=== PATIENT | female | born 1990 | race African-American/Black ===

== ENCOUNTER → 2021-05-02 12:54 | Outpatient (BNVA) | payer OTHER, SELFPAY | PROVIDERS: PCP Internal Medicine; Visit Provider Physician Assistant ==

== ENCOUNTER 2021-05-06 09:05 | Outpatient (REF) | payer OTHER, SELFPAY ==
[2021-05-07 15:16] LABS: H Pylori Breath Test NOT DETECTED (NOT DETECTED)
== END 2021-05-06 09:06 | disposition home or self-care (01) ==
LOC: HO.LNP 09:05
PROVIDERS: PCP Internal Medicine; Visit Provider Physician Assistant
DX: E66.01 Morbid (severe) obesity due to excess calories (principal)
CPT/HCPCS: 83013

== ENCOUNTER → 2021-05-15 15:08 | Outpatient (BNVA) | payer OTHER, SELFPAY | PROVIDERS: PCP Internal Medicine; Visit Provider Physician Assistant ==

== ENCOUNTER 2021-05-28 09:43 | Outpatient (REF) | payer OTHER, SELFPAY ==
--- NOTE | ~2021-05-28 | US_ITS ---
EXAMINATION: US COMPLETE ABDOMEN WITH LIVER ELASTOGRAPHY CLINICAL INFORMATION: Morbid obesity due to excess calories. COMPARISON: None. TECHNIQUE: Real-time imaging of the abdominal viscera. Noninvasive ultrasound liver fibrosis assessment is performed using Dorothea ElastPQ point quantification shear wave elastography (pSWE) with a C5-2 MHz transducer. Multiple elastography samples are obtained. FINDINGS: PANCREAS: The visualized pancreatic head and body are normal in appearance. The tail of the pancreas is obscured from visualization by the overlying bowel gas. ABDOMINAL AORTA: The proximal, middle, and distal aortic segments are normal in caliber. INFERIOR VENA CAVA: Visualized portions are normal. LIVER: The liver demonstrates normal size, contour and increased echogenicity. No focal lesion or intrahepatic biliary duct dilatation. The right lobe measures 15.3 cm in length. The left lobe measures 10.8 cm in length. Portal flow is hepatopedal. Shear wave liver elastography median stiffness is 1.5 m/s (reference: normal median stiffness is 1.3 m/s or less). IQR/median stiffness to assess sampling precision is 0.09 (reference: good quality data set is IQR/median stiffness of 0.15 or less). GALLBLADDER: There are multiple echogenic folds visualized without any echogenic stones or wall thickening. COMMON BILE DUCT: Normal in caliber measuring 0.3 cm in diameter. RIGHT KIDNEY: Normal. No hydronephrosis. No renal calculi or focal parenchymal lesions. The kidney measures 12.1 cm in maximum dimension. LEFT KIDNEY: Normal. No hydronephrosis. No renal calculi or focal parenchymal lesions. The kidney measures 11.6 cm in maximum dimension. SPLEEN: Normal. The spleen measures 8.7 cm in maximum dimension. FREE FLUID: None. US/US abdomen comp w elastography IMPRESSION: 1. Hepatic steatosis without focal lesion. 2. Liver elastography: Medial liver stiffness measures 1.5 m/s suggestive of cACLD ruled out. REFERENCE: Society of Radiologists in Ultrasound Liver Stiffness Thresholds (2020): LIVER STIFFNESS THRESHOLDS: *Liver Stiffness equal or less than 1.3 m/s: High probability of being normal. *Liver Stiffness less than 1.7 m/s: In the absence of other known clinical signs, rules out compensated advanced chronic liver disease. *Liver Stiffness 1.7-2.1 m/s: Suggestive of compensated advanced chronic liver disease but need further test for confirmation. *Liver Stiffness over 2.1 m/s: Rules in compensated advanced chronic liver disease. *Liver Stiffness over 2.4 m/s: Suggestive of clinically significant portal hypertension. QUALITY OF DATA SET: *IQR/Median value equal or less than 0.15 implies a quality data set. *IQR/Median value over 0.15 implies a poor quality data set. SIGNIFICANT CHANGE FROM PRIOR EXAM: Significant change if liver stiffness measurement is 10% or greater from prior exam. OTHER CONSIDERATIONS: The stage of liver fibrosis may be overestimated in the setting of acute hepatitis, liver inflammation, elevated liver function tests, hepatic vascular congestion, obstructive cholestasis, non-fasting state, and infiltrative diseases such as amyloidosis and lymphoma. In some patients with NAFLD, the liver stiffness thresholds for compensated advanced chronic liver disease may be lower. In causes other than viral hepatitis and NAFLD, liver stiffness thresholds are not well established.
--- NOTE | ~2021-05-28 | FL_ITS ---
EXAMINATION: FL GI SERIES CLINICAL INFORMATION: Moderate/severe obesity. COMPARISON: None TECHNIQUE: Routine upper GI air-contrast study was performed. FINDINGS: Following oral administration of thick barium and effervescent granules, there is normal propagation of bolus from the oral cavity through the pharynx, esophagus into stomach without any evidence of obstruction, narrowing or stricture. On placing patient supine and prone, the course, caliber and peristalsis of the stomach, duodenal bulb and the sweep are normal. There is moderate gastroesophageal reflux without hiatal hernia. The mucosal pattern of the stomach, duodenal bulb and the sweep is normal. FLUOROSCOPY TIME: 2.0 DOSE AREA PRODUCT: 397.830 uGy-m2 (microgray-meter squared) FL/FL upper GI series IMPRESSION: Moderate gastroesophageal reflux without hiatal hernia.
== END 2021-05-28 09:44 | disposition home or self-care (01) ==
LOC: HO.US 09:43
PROVIDERS: Visit Provider Surgery
DX: Z01.818 Encounter for other preprocedural examination (principal); E66.01 Morbid (severe) obesity due to excess calories; K21.9 Gastro-esophageal reflux disease without esophagitis
CPT/HCPCS: 74240; 76705; 76981

== ENCOUNTER → 2021-06-11 08:31 | Outpatient (BNVA) | payer OTHER, SELFPAY | PROVIDERS: Visit Provider Dietitian, Registered | DX: E66.01 Morbid (severe) obesity due to excess calories (principal) | CPT/HCPCS: 97802 ==

== ENCOUNTER → 2022-10-23 09:10 | Outpatient (BNVA) | payer BC, SELFPAY | PROVIDERS: PCP Internal Medicine; Visit Provider Physician Assistant Surgical | DX: Z13.89 Encounter for screening for other disorder (principal) ==

== ENCOUNTER → 2022-10-28 09:08 | Outpatient (BNVA) | payer BC, SELFPAY | PROVIDERS: PCP Internal Medicine; Visit Provider Physician Assistant | DX: E66.01 Morbid (severe) obesity due to excess calories (principal) ==

== ENCOUNTER 2022-11-05 12:48 | Outpatient (REF) | payer OTHER, SELFPAY ==
--- NOTE | ~2022-11-05 | XR_ITS ---
EXAMINATION: XR CHEST CLINICAL INFORMATION: Morbid/severe obesity due to excess calories COMPARISON: None TECHNIQUE: 2 views of the chest were obtained. FINDINGS: No significant abnormality is noted involving the heart, lungs, mediastinum, bony thorax or soft tissues. XR/XR chest 2V IMPRESSION: Unremarkable chest examination.
--- NOTE | 2022-11-05 13:02 | ECG_ITS ---
Test Reason : e66.01 Blood Pressure : / mmHG Vent. Rate : 076 BPM Atrial Rate : 076 BPM P-R Int : 136 ms QRS Dur : 078 ms QT Int : 346 ms P-R-T Axes : 038 065 -53 degrees QTc Int : 389 ms Normal sinus rhythm Nonspecific ST and T wave abnormality Abnormal ECG No previous ECGs available Referred By: Umu Thomas Electronically Signed By:FLAVIA CASTILLO
== END 2022-11-05 12:49 | disposition home or self-care (01) ==
LOC: HO.XRAY 12:48
PROVIDERS: PCP Internal Medicine; Visit Provider Physician Assistant
DX: Z01.818 Encounter for other preprocedural examination (principal); E66.01 Morbid (severe) obesity due to excess calories
CPT/HCPCS: 71046; 93005

== ENCOUNTER 2022-11-09 14:43 | Outpatient (REF) | payer OTHER, SELFPAY ==
[2022-11-09 15:07] LABS: MANUAL DIFF FLAG NO
[2022-11-09 15:35] LABS: Basophils Absolute Auto 0.1 X10*3/uL (0.0-0.2); Eosinophils Percent Auto 0.6 % (0-4); Hemoglobin 13.7 g/dl (12.0-16.0); Imm Gran Abs Auto 0.04 X10*3/uL (0.00-0.03); Imm Gran Pct Auto 0.8 % (0.0-0.4); Lymphocytes Absolute Auto 1.9 X10*3/uL (1.2-4.9); Lymphocytes Percent Auto 37.4 % (20-40); Mean Corpuscular HGB Conc 35.1 g/dl (31.0-35.0); Mean Corpuscular Volume 82.5 fL (80.0-98.0); Mean Platelet Volume 11.2 fL (9.4-12.3); Monocytes Absolute Auto 0.5 X10*3/uL (0.1-1.2); Monocytes Percent Auto 9.9 % (2-11); Neutrophils Absolute Auto 2.6 x10*3/uL (2.0-8.3); Neutrophils Percent Auto 50.3 % (45-73); Platelet Count 353 X10*3/uL (160-400); Red Blood Count 4.73 X10*6/uL (4.20-5.50); Red Cell Distribution Width 13.8 % (11.0-16.0); White Blood Count 5.1 X10*3/uL (4.8-10.8)
[2022-11-09 15:40] LABS: Estimated Average Glucose 108 mg/dL; Hemoglobin A1c % 5.4 %
[2022-11-09 16:03] LABS: Alanine Aminotransferase 16 U/L (0-31); Albumin Level 4.1 g/dL (3.5-5.0); Alkaline Phosphatase 99 U/L (39-117); Anion Gap 13 (12-20); Aspartate Amino Transferase 17 U/L (5-31); Bilirubin Total 0.4 mg/dL (0.0-1.0); Blood Urea Nitrogen 11 mg/dL (9-16); C Reactive Protein 0.69 mg/dL (< or = 0.50); Calcium 9.3 mg/dL (8.4-10.2); Carbon Dioxide 26 mmol/L (22-29); Chloride 106 mmol/L (96-108); Cholesterol 211 mg/dL; Estimated Glomerular Filt Rate > 60; Glucose Random 83 mg/dL (60-115); HDL Cholesterol 55 mg/dL; Iron 75 mcg/dL (30-160); LDL Cholesterol Calculated 146 mg/dl; Percent Iron Saturation 22 % (15-50); Sodium 140 mmol/L (135-145); Total Iron Binding Capacity 341 mcg/dL (228-428); Total Protein 7.1 g/dL (6.5-8.0); Triglycerides 50 mg/dL; Unsaturated Iron Binding 266 ug/dL
[2022-11-09 17:09] LABS: Ferritin 35 ng/mL (10-122); Folate 10.3 ng/mL (> or = 4.0); Insulin 8 uU/mL (2-29); TSH reflex Free T4 1.62 uIU/mL (0.32-4.0); Vitamin B12 422 pg/mL (200-900); Vitamin D 25-OH Total 27.7 ng/mL (>30)
[2022-11-10 17:59] LABS: Calcium (PTHI) 9.3 mg/dL (8.6-10.2); PTHI 52 pg/mL (16-77)
[2022-11-11 16:38] LABS: Zinc 69 mcg/dL (60-130)
[2022-11-12 15:28] LABS: Vitamin A 43 mcg/dL (38-98)
[2022-11-13 16:14] LABS: Vitamin B1 7 nmol/L (8-30)
== END 2022-11-09 14:44 | disposition home or self-care (01) ==
LOC: HO.LAB 14:43
PROVIDERS: PCP Internal Medicine; Visit Provider Physician Assistant
DX: E66.01 Morbid (severe) obesity due to excess calories (principal)
CPT/HCPCS: 36415; 80053; 80061; 82306; 82607; 82728; 82746; 83036; 83525; 83540; 83970; 84425; 84443; 84590; 84630; 85025; 86140

== ENCOUNTER → 2022-11-11 08:37 | Outpatient (BNVA) | payer OTHER, SELFPAY | PROVIDERS: PCP Internal Medicine; Visit Provider Dietitian, Registered | DX: E66.01 Morbid (severe) obesity due to excess calories (principal) | CPT/HCPCS: 97802 ==

== ENCOUNTER → 2022-11-23 08:15 | Outpatient (REF) | payer OTHER, SELFPAY ==
--- NOTE | ~2022-11-23 | NM_ITS ---
Exercise Myocardial perfusion study Indication: Abnormal EKG to evaluate for myocardial ischemia Technique: The patient was brought in for an exercise perfusion study on 11/23/2022. Patient performed exercise as per [place] protocol and was injected 40 mCi of sestamibi was given intravenously one target HR was achieved. Images were obtained using the SPECT gamma camera interlaced with the gating device. Images were obtained in supine position. Resting perfusion study was performed on 11/24/2022. Patient was administered 40 mCi of sestamibi intravenously at rest. Images were then obtained in supine position. Images obtained with and without CT attenuation. Total DLP 159 mGy-cm. Images were processed with the software and compared side to side in short axis, horizontal long axis and vertical long axis views. Findings: The stress perfusion study showed both non attenuated as well as attenuated corrected images show normal uptake of radiotracer in all segments of LV myocardium.. The gated study shows normal LV systolic function with calculated LVEF of 73%. LV cavity is normal in size. The gated study shows normal systolic wall thickening and contraction of all segments. There is no transient ischemic dilation. Resting images are somewhat suboptimal due to intense subdiaphragmatic uptake interfering with inferior wall uptake. Study shows mildly reduced uptake in the anterior wall on non attenuated images as well as mildly to moderately reduced uptake in the anterior and septal wall on attenuated corrected images. Gating at rest reveals normal systolic wall motion with ejection fraction at greater than 60%. The findings are consistent with normal myocardial perfusion. NM/NM cardiolite stress test Impression: 1. Normal myocardial perfusion 2. Gated LVEF is 73% 3. Transient ischemic dilatation not present Stress EKG is positive for ischemia
--- NOTE | 2022-11-23 08:20 | CA_ITS ---
Transthoracic Echocardiogram Patient (Last, First, Middle): Misael Esqueda, Gender: Female Date of : 1990 Age: 32 Procedure Date: 11/23/2022 Procedure Type: Transthoracic Echocardiogram Location: OP Height: 160.02 cm Weight: 143.79 kg BSA: 2.35 m2 Heart Rate: bpm BP: 144 / 84 mmHg Print Binding And Finishing Worker: Referring MD: Umu Thomas PA-C Symptoms: R94.31 - Abnormal electrocardiogram [ECG] [EKG] Study Quality: Fair, Good with Definity ECG Rhythm: Sinus Conclusions: - The left ventricular systolic function is normal. The visually estimated ejection fraction is between 55-60%. - There is mildly increased left ventricular wall thickness. - No obvious valvular pathology seen on this study. Findings Procedure Information Contrast agent, definity, is being given per protocol without apparent complications. Left Ventricle Normal left ventricular cavity size. There is mildly increased left ventricular wall thickness. The left ventricular systolic function is normal. The visually estimated ejection fraction is between 55-60%. There is no evidence of regional wall motion abnormalities. Diastolic function is normal for age. Right Ventricle Normal right ventricular cavity size and systolic function. Atria The left atrium is mildly dilated. The right atrium is normal in size. Aortic Valve There is a normal trileaflet aortic valve. There is no aortic valve stenosis. There is no aortic valve regurgitation. Mitral Valve The mitral valve appears normal. There is trace mitral valve regurgitation. There is no mitral valve stenosis. Pulmonic Valve The pulmonic valve is likely normal. Tricuspid Valve There is no tricuspid valve regurgitation. Tricuspid regurgitation envelope is inadequate for calculation of right ventricular systolic pressure. Great Vessels The sinuses of valsalva is normal in size. Venous The inferior vena cava is normal in size and collapses greater than 50% with inspiration. Pericardium/Pleural There is no evidence of pericardial effusion. Prior Study Comparison No prior study available for comparison. Recommendations, Care & Conclusions No obvious valvular pathology seen on this study. Measurements 2D Linear Measurements IVSd: 1.15 0.6-0.9/0.6-1.0 cm LVIDd: 4.46 3.9-5.3/4.2-5.9 cm LVIDd Index: 1.90 2.4-3.2/2.2-3.1 cm/m2 LVIDs: 2.74 2.0-3.6 cm LVPWd: 1.08 0.7-1.1 cm Ao Root: 2.70 2.1-3.5 cm LA Diam: 3.70 2.7-3.8/3.0-4.0 cm LAIDs Index: 1.57 1.5-2.3 cm/m2 LV Mass: 219.13 67-162/88-224 g LV Mass Index: 93.25 43-95/49-115 g/m2 LVOT Diam: 2.20 3.0+(-)1.3 cm 2D Systolic Function EF 4C: 59.50 >55% EF 2C: 80.10 >55% EF BiP: 71.60 >55% Mitral Valve MV Pk E: 0.71 MV PK A: 0.80 MV Decel Time: 139.00 E/A: 0.90 E'Lateral: 9.36 E'Medial: 8.05 E/E' Med: 8.80 E/E' Lat: 7.60 PHT: 41.00 MVA PHT: 5.37 Decel Crenshaw: 5.12 Aortic Valve AoV Pk Trace: 1.21 AoV Mn Trace: 0.80 AoV VTI: 0.26 AoV Pk Grad: 6.00 Aov Mn Grad: 3.00 FRAN Cont.VTI: 2.79 LVOT LVOT Pk Trace: 0.86 LVOT Mn Trace: 0.55 LVOT VTI: 0.19 LVOT Pk Grad: 3.00 LVOT Mn Grad: 2.00 LVOT Diam: 2.20 LVOT Area: 3.80 Diastolic Function MV Pk E: 0.71 MV Pk A: 0.80 E/A: 0.90 E'Medial: 8.05 E/E' Med: 8.80 E' Laterial: 9.36 E/E' Lat: 7.60 Right Ventricle TAPSE (mm): 24.00 TVS' Trace: 13.00 Tricuspid Valve TR Pk Trace: 1.56 TR Pk Grad: 10.00 RA Press: 3.00 RVSP: 13.00 Great Vessels Aorta Ao Root-2D: 2.70 2.0-3.7 cm Pulmonary Valve PV Pk Trace: 0.96 Peak PV Grad: 4.00 Updated in Other Vendor System with Status of Final Loyd Brooks MD electronically signed on 11/23/2022 4:18:07 PM with status of Final
--- NOTE | 2022-11-23 08:20 | CA_ITS ---
Acquisition Time: 2022-11-23 09:51:17 Total Exercise Time: 00:05:01 Test Indications: Abnormal ECG Medications: NONO Protocol: KIMMIE Max HR: 181 BPM 97% of Pred: 186 BPM Max BP: 152/084 mmHG Max Work Load: 7.0 METS Exercose stress test with exercise 5 min 1 sec of Kimmie protocol achieving 97% MPHR, with fatigue and need to stop, with mild sob, no chest discomfort, without arrythmia, with normotensive response to exercise, with EKG changes meeting criteria for ischemia: inferolateral leads. In recovery EKGs gradually improved back to baseline. Nuclear images pending. Test reviewed with Dr Mishra. Referred By: Umu Thomas Overread By: ONESIMO CHU
== END ==
LOC: HO.CARD 08:15
PROVIDERS: Visit Provider Physician Assistant
DX: Z01.818 Encounter for other preprocedural examination (principal); R94.31 Abnormal electrocardiogram [ECG] [EKG]; E66.01 Morbid (severe) obesity due to excess calories; R06.02 Shortness of breath
CPT/HCPCS: 78452; 93017; 93306; A9500; Q9957

== ENCOUNTER → 2022-11-25 08:39 | Outpatient (BNVA) | payer OTHER, SELFPAY | PROVIDERS: PCP Internal Medicine; Visit Provider Dietitian, Registered | DX: E66.01 Morbid (severe) obesity due to excess calories (principal); Z68.43 Body mass index [BMI] 50.0-59.9, adult | CPT/HCPCS: 97803 ==

== ENCOUNTER → 2022-12-01 11:00 | Outpatient (BNVA) | payer OTHER, SELFPAY | PROVIDERS: PCP Internal Medicine; Visit Provider Counselor Mental Health | DX: F43.20 Adjustment disorder, unspecified (principal); E66.01 Morbid (severe) obesity due to excess calories | CPT/HCPCS: 90791 ==

== ENCOUNTER → 2022-12-16 14:41 | Outpatient (BNVA) | payer OTHER, SELFPAY | PROVIDERS: PCP Internal Medicine; Visit Provider Physician Assistant | DX: Z13.89 Encounter for screening for other disorder (principal) ==

== ENCOUNTER 2022-12-16 15:56 | Outpatient (REF) | payer OTHER, SELFPAY ==
[2022-12-20 12:08] LABS: H Pylori Breath Test Negative (Negative)
== END 2022-12-16 15:57 | disposition home or self-care (01) ==
LOC: HO.LNP 15:56
PROVIDERS: Visit Provider Physician Assistant
DX: E66.01 Morbid (severe) obesity due to excess calories (principal)
CPT/HCPCS: 83013

== ENCOUNTER → 2023-02-01 09:30 | Outpatient (BNVA) | payer OTHER, SELFPAY | PROVIDERS: PCP Internal Medicine; Visit Provider Physician Assistant | DX: E66.01 Morbid (severe) obesity due to excess calories (principal) ==

== ENCOUNTER 2023-05-12 16:33 | Outpatient (AMB) | payer OTHER, SELFPAY ==
--- NOTE | 2023-05-12 15:23 | MHC.OFFVISWM ---
Intake VS Expanded 05/12/23 16:21 Height 5 ft 3 in Weight 306 lb BMI 54.2 Intake Visit Reasons: VIDEO F/U SWL Allergies vancomycin Allergy (Severe, Verified 12/16/22 14:55) ITCHING amoxicillin Allergy (Mild, Verified 12/16/22 14:55) HIVES Penicillins Allergy (Mild, Verified 12/16/22 14:55) HIVES HPI HPI Comments History of Present Illness Details SWL follow up , last appt in January 2023 at 308 lbs, [employer] weight of 321.9 lbs. Patient has decided to transfer to a different SWL program in which she doesn't have to lose weight before surgery. Exercise - sporadic only. Meal plan: has not been using our meal plan. Pre op work up completed as follows: SWL classes?-? 05/18 appts -cleared ? ? RD appts? - cleared H pylori - negative Labs - done CXR - normal ECG -Normal sinus rhythm Nonspecific ST and T wave abnormality Abnormal ECG No previous ECGs available ECHO -Conclusions: - The left ventricular systolic ?function is normal.? The visuallyestimated ejectionraction is between 55-60%. ? - There?is mildly increased left ventricular wall thickness. ? ?- No obviousvalvular pathology?seen on this study.? Cardiac stress test - showed some ischemiaECG changes, Dr Bass response to me was: Her nuclear imaging is normal and therefore andres persedes the EKG findings ? ULS and?UGI - 12/22, no show after being reminded. Had them both in May of 2021. She was told that she will need to call to reschedue herself. ? PFSH Surgical History Hx of breast reduction, elective Hx of colonoscopy Previous section complicating , with delivery Family History Mother Autoimmune disease Father Hypertension Sister No problems noted. Social History Alcohol intake: current Alcohol intake frequency: a few times a week Patient Tobacco Use Status: Never used Tobacco Assessment & Plan Assessment & Plan (1) Morbid (severe) obesity due to excess calories: Code(s): E66.01 - Morbid (severe) obesity due to excess calories Plan: Patient has decided not to continue in our SWL program and to attend another bariatric surgery program. I told that whenever she is ready she should contact us to send her medical records to the new program. Patient is still morbidly obese and is not considered stable at this time. I spent 14 minutes in total speaking with the patient via video conference counseling , reviewing records and charting in patients chart. . Telehealth Telehealth Location of provider rendering services: practice address Location of patient: address on file Patient Identification confirmed using: Name, : Yes Telehealth method: video Patient verbally consented to treatment: Yes Patient verbally consented to billing insurance company: Yes Patient informed of any privacy concerns related to visit: Yes Coding Level of Care Code Tele Est Pt Level 3 (72950) Diagnoses Morbid (severe) obesity due to excess calories E66.01
[2023-05-12 16:21] VITALS: BMI 54.2
== END 2023-05-12 16:41 | disposition home or self-care (01) ==
LOC: HO.HBS 16:33
PROVIDERS: PCP Internal Medicine; Visit Provider Physician Assistant
DX: E66.01 Morbid (severe) obesity due to excess calories (principal)
CPT/HCPCS: 99213

== ENCOUNTER → 2023-05-12 16:33 | Outpatient (BNVA) | payer OTHER, SELFPAY | PROVIDERS: PCP Internal Medicine; Visit Provider Physician Assistant | DX: E66.01 Morbid (severe) obesity due to excess calories (principal) ==